=== PATIENT | female | born 1990 | race Caucasian/White ===

== ENCOUNTER 2020-12-08 06:43 | Day surgery (SDC) | payer BC ==
[~2020-12-08 06:43] MED LIST: Lactated Ringers 1,000 ML IV SCH
[2020-12-08] MEDS ORDERED: Midazolam 1 MG/ML 2 ML SDV ONE (06:58)
[2020-12-08] MEDS ORDERED: Propofol 200 MG/20 ML SDV ONE (06:58)
[2020-12-08] MEDS ORDERED: fentaNYL 100 MCG/2 ML SDV ONE ×2 (06:58→08:24)
[2020-12-08] MEDS ORDERED: Ondansetron 4 MG/2 ML SDV ONE (07:00)
[2020-12-08] MEDS ORDERED: Lidocaine 2% 5 ML SDV ONE (07:00)
[2020-12-08] MEDS ORDERED: Sugammadex Sodium 200 MG/2 ML VIAL ONE (07:00)
[2020-12-08] MEDS ORDERED: Rocuronium Bromide 50 MG/5 ML Syringe ONE (07:00)
[2020-12-08] MEDS ORDERED: Glycopyrrolate 0.2 MG/ML SDV ONE (07:00)
[2020-12-08] MEDS ORDERED: Ketorolac 30 MG/ML SDV ONE (07:00)
[2020-12-08] MEDS ORDERED: Bupivacaine 0.5% 30 ML SDV ONE (07:23)
[2020-12-08] MEDS ORDERED: Scopolamine 1.5 MG Transdermal Patch TRDERM ONE (07:23)
[2020-12-08] MEDS ORDERED: Morphine 2 MG/ML SYRINGE IVPUSH PRN (07:24)
[2020-12-08] MEDS ORDERED: Naloxone 0.4 MG/ML Syringe IVPUSH PRN (07:24)
[2020-12-08] MEDS ORDERED: Ondansetron 4 MG/2 ML SDV IVPUSH PRN (07:24)
[2020-12-08] MEDS ORDERED: Albuterol 0.083% 2.5 MG/3 ML Neb Soln NEB PRN (07:24)
[2020-12-08] MEDS ORDERED: Metoclopramide 10 MG/2 ML SDV IVPUSH PRN (07:24)
[2020-12-08] MEDS ORDERED: HYDROmorphone 1 MG/ML Syringe IVPUSH PRN (07:24)
[2020-12-08] MEDS ORDERED: fentaNYL 100 MCG/2 ML SDV IVPUSH PRN (07:24)
--- NOTE | 2020-12-08 07:28 | PCM.PREANE ---
Preanesthetic Assessment - Procedure Proposed Procedure: Operative Laparoscopy, ovarian cyst excision poss oopherectomy - Anesthesia/Transfusion/Family Hx Anesthesia History: Prior Anesthesia Reaction Type of Anesthesia Reaction: Excessive Nausea/Vomiting Transfusion History: No Prior Transfusion(s) - Review of Systems General: No Symptoms Pulmonary: No Symptoms Cardiovascular: No Symptoms Gastrointestinal: No Symptoms Neurological: No Symptoms Other: Reports: None - Physical Assessment NPO Status Date: 12/07/20 NPO Status Time: 20:30 Vital Signs: Last Vital Signs Temp 97.7 F 12/08/20 06:47 Pulse 72 12/08/20 06:47 Resp 15 12/08/20 06:47 BP 125/80 12/08/20 06:47 Pulse Ox 98 12/08/20 06:47 Height: 5 ft 3 in Weight: 53.524 kg ASA Class: 1 Mental Status: Alert & Oriented x3 Airway Class: Mallampati = 1 Dentition: Reports: Normal Dentition Thyro-Mental Finger Breadths: 3 Mouth Opening Finger Breadths: 3 ROM/Head Extension: Full Lungs: Clear to Auscultation, Normal Respiratory Effort Cardiovascular: Regular Rate, Regular Rhythm - Allergies Allergies/Adverse Reactions: Allergies Allergy/AdvReac Type Severity Reaction Status Date / Time No Known Allergies Allergy Verified 12/07/20 10:00 - Acknowledgements Anesthesia Type Planned: General Anesthesia Pt an Appropriate Candidate for the Planned Anesthesia: Yes Alternatives and Risks of Anesthesia Discussed w Pt/Guardian: Yes Pt/Guardian Understands and Agrees with Anesthesia Plan: Yes PreAnesthesia Questionnaire HEENT History: Reports: None Cardiovascular History: Reports: None Respiratory History: Reports: None Gastrointestinal History: Reports: None Genitourinary History: Reports: None SCIENCE MANAGER History: Reports: None Musculoskeletal History: Reports: None Neurological History: Reports: Concussion Psychiatric History: Reports: None Endocrine/Metabolic History: Reports: None Hematologic History: Reports: None Immunologic History: Reports: None Oncologic (Cancer) History: Reports: None Dermatologic History: Reports: None - Past Surgical History Head Surgeries/Procedures: Reports: None HEENT Surgical History: Reports: Oral Surgery Other HEENT Surgeries/Procedures: wisdom teeth removed Cardiovascular Surgical History: Reports: None Respiratory Surgical History: Reports: None GI Surgical History: Reports: None Female Surgical History: Reports: None Endocrine Surgical History: Reports: None Neurological Surgical History: Reports: None Musculoskeletal Surgical History: Reports: Arthroscopic Knee Other Musculoskeletal Surgeries/Procedures:: hc of right ACL repair Oncologic Surgical History: Reports: None Dermatological Surgical History: Reports: None - SUBSTANCE USE Tobacco Use Status *Q: Never Tobacco User Recreational Drug Use History: No - HOME MEDS Home Medications: Home Meds Multivitamin 1 tab PO DAILY 12/07/20 [History] Pnv No.95/Ferrous Fum/Folic AC [ Caplet] 1 tab PO DAILY 12/07/20 [History] - CURRENT (IN HOUSE) MEDS Current Meds: Current Medications Lactated Ringer's (Ringers, Lactated) 1,000 mls @ 100 mls/hr IV ASDIRECTED SANDI Last Admin: 12/08/20 07:10 Dose: 100 mls/hr Documented by: Scopolamine (Scopolamine 1.5 Mg Transdermal Patch) 0 mg TRDERM ONETIME ONE Stop: 12/08/20 07:24 Discontinued Medications Fentanyl (Fentanyl 100 Mcg/2 Ml Sdv) Confirm Administered Dose 100 mcg .ROUTE .STK-MED ONE Stop: 12/08/20 06:59 Glycopyrrolate (Glycopyrrolate 0.2 Mg/Ml Sdv) Confirm Administered Dose 0.2 mg .ROUTE .STK-MED ONE Stop: 12/08/20 07:01 Ketorolac Tromethamine (Ketorolac 30 Mg/Ml Sdv) Confirm Administered Dose 30 mg .ROUTE .STK-MED ONE Stop: 12/08/20 07:01 Lidocaine (Lidocaine 2% 5 Ml Sdv) Confirm Administered Dose 5 ml .ROUTE .STK-MED ONE Stop: 12/08/20 07:01 Midazolam HCl (Midazolam 1 Mg/Ml 2 Ml Sdv) Confirm Administered Dose 2 mg .ROUTE .STK-MED ONE Stop: 12/08/20 06:59 Ondansetron HCl (Ondansetron 4 Mg/2 Ml Sdv) Confirm Administered Dose 4 mg .ROUTE .STK-MED ONE Stop: 12/08/20 07:01 Propofol (Propofol 200 Mg/20 Ml Sdv) Confirm Administered Dose 200 mg .ROUTE .STK-MED ONE Stop: 12/08/20 06:59 Rocuronium Ione (Rocuronium Ione 50 Mg/5 Ml Syringe) Confirm Administered Dose 50 mg .ROUTE .STK-MED ONE Stop: 12/08/20 07:01 Sugammadex Sodium (Sugammadex Sodium 200 Mg/2 Ml Vial) Confirm Administered Dose 200 mg .ROUTE .[facility] ONE Stop: 12/08/20 07:01
[2020-12-08] MEDS ORDERED: Bupivacaine 0.25% 10 ML SDV ONE (07:50)
[2020-12-08] MEDS ORDERED: Methylene Blue 50 MG/10 ML Ampule ONE (09:09)
--- NOTE | 2020-12-08 09:53 | PCM.OPNOTE ---
- General Post-Op/Procedure Note Date of Surgery/Procedure: 12/08/20 Operative Procedure(s): Operative laparoscopy with right ovarian cystectomy, pelvic washings, ablation of endometriosis implants and chromotubation Findings: Right 7 cm endometrioma, endometriosis implants along anterior cul de sac, posterior cul de sac, broad ligaments. Posterior cul de sac is not ablated. Bilateral patent tubes. Pre Op Diagnosis: Right ovarian cyst Post-Op Diagnosis: Stage 2 endometriosis Anesthesia Technique: General ET Tube Primary Surgeon: Stella Munoz Atmospheric Chemist: Zheng Glass Atmospheric Chemist: Marianne Clarke Pathology: * Pelvic washings for cytology * Right ovarian cyst Fluid Replacement, Intraop: 1,100 EBL in mLs: 10 Complications: None known Condition: Stable
--- NOTE | 2020-12-08 10:04 | PCM.POSTAN ---
POST ANESTHESIA ASSESSMENT - MENTAL STATUS Mental Status: Alert, Oriented - VITAL SIGNS Vital Signs: Last Vital Signs Temp 97.0 F 12/08/20 09:45 Pulse 55 L 12/08/20 09:55 Resp 8 L 12/08/20 09:55 BP 99/55 L 12/08/20 09:55 Pulse Ox 100 12/08/20 09:55 - RESPIRATORY Respiratory Status: Respiratory Rate WNL, Airway Patent, O2 Saturation Stable - CARDIOVASCULAR CV Status: Pulse Rate WNL, Blood Pressure Stable - GASTROINTESTINAL GI Status: No Symptoms - PAIN Pain Score: 4 - POST OP HYDRATION Hydration Status: Adequate & Stable
[2020-12-08] MEDS ORDERED: Acetaminophen 1,000 MG in Premix Bag 1 BAG IV PRN (10:06)
--- NOTE | 2020-12-08 10:10 | PCM48HPAN ---
Post Anesthesia Note - EVALUATION WITHIN 48HRS OF ANESTHETIC Vital Signs in Normal Range: Yes Patient Participated in Evaluation: Yes Respiratory Function Stable: Yes Airway Patent: Yes Cardiovascular Function Stable: Yes Hydration Status Stable: Yes Pain Control Satisfactory: Yes Nausea and Vomiting Control Satisfactory: Yes Mental Status Recovered: Yes Vital Signs: Last Vital Signs Temp 97.0 F 12/08/20 09:45 Pulse 55 L 12/08/20 09:55 Resp 8 L 12/08/20 09:55 BP 99/55 L 12/08/20 09:55 Pulse Ox 100 12/08/20 09:55 - COMMENTS/OBSERVATIONS Free Text/Narrative:: Pt doing well post-op. VSS. No apparent anesthetic complications. Dr. Mak Montague
--- NOTE | 2020-12-08 17:58 | OR ---
SURGEON: Stella Munoz M.D. DATE OF PROCEDURE: 12/08/2020 PREOPERATIVE DIAGNOSIS: Right ovarian cyst. POSTOPERATIVE DIAGNOSIS: Stage II endometriosis with endometrioma. PROCEDURES: Operative laparoscopy with right ovarian cystectomy, pelvic washings, ablation of endometriosis implants and chromotubation. PRIMARY SURGEON: Stella Munoz M.D. INFORMATION TECHNOLOGY INSTRUCTOR: MD Quan ANESTHESIA: General endotracheal anesthesia. FLUIDS: 100 mL of crystalloid. COMPLICATIONS: None known. FINDINGS: Right ovarian endometrioma is suspected. Endometrial implants across the anterior cul-de-sac, broad ligaments bilaterally. Posterior cul-de-sac does not appear obliterated. The patient has bilateral patent tubes. DISPOSITION: The patient to PACU, stable. PROCEDURE DETAILS: Denise is a 30-year-old G0 who presents today with right ovarian cyst. It is relatively asymptomatic. The patient is going to be attempting with donor semen and [facility] has requested a baseline imaging study. This study revealed she had a 4 cm to 5 cm ovarian cyst and therefore we follow conservatively and with followup, it had grown to actually over 7 cm. Therefore, at this time, I opted to proceed with surgical evaluation. Risks of procedure were discussed. Proper consent was obtained. Uyen was taken to the operating room where she underwent general endotracheal anesthesia, was placed in the dorsal supine position with modified dorsal lithotomy repositioning. She was prepped and draped in usual sterile fashion. Bladder was drained. SCDs to the lower extremities. A time-out was performed. Speculum was introduced in the vagina. Anterior lip of cervix was grasped with an Allis clamp. A [employer] uterine manipulator was gently placed. Gloves changed. Attention turned abdominally. Infraumbilically, 0.25% Marcaine was introduced. Please see nurse's notes for total amount of local to be used during the procedure. A 5 mm infraumbilical sagittal midline skin incision was created. Anterior abdominal wall tented upward. Veress needle was introduced. Saline hanging drop test was performed. Pneumoperitoneum was achieved. The Veress needle was removed and a 5 mm trocar was introduced with laparoscope. Peritoneal contents were identified. Left lower quadrant and right lower quadrant trocar now introduced after prepping these regions with 0.25% Marcaine and creating a 5 mm skin incision. The uterus overall was mobile. There were apparent endometriosis implants noted along the anterior cul-de-sac to the right side, both broad ligaments, the right posterior cul-de-sac near the uterosacral ligament. The posterior cul-de-sac is not ablated. The cyst lifted easily out of the pelvis. There appears to be a right ovarian cyst as expected. The left ovary appears normal. The pelvis was copiously irrigated, suction dried with pelvic washings being sent to pathology for further analysis. At this point, I was able to secure the right ovary and create an incision along the ovary using Harmonic hook. The edge of the ovary was now grasped and the underlying cyst was peeled away from the overlying ovarian wall. After dissecting this region, and isolating the cyst away from the ovary, was able to lyse the base of the cyst using the Harmonic Scalpel. In order to remove the cyst, I needed to create a wider passage. Therefore, the left lower quadrant 5 mm trocar was removed and the incision was then extended to 10 mm. A 10 mm trocar was introduced. The cyst was grasped and able to be removed through this port. It will be sent to pathology for further analysis. The remaining ovary is now copiously irrigated, suction dried. Overall appeared hemostatic. Attention was now turned to ablating the endometriosis implants, which was performed with the Harmonic ball, was performed along the anterior cul- de-sac, posterior cul-de-sac, broad ligaments. The appendix was visualized. No endometrial implants were noted along this region. Again, the uterus appears mobile overall. Even though the patient has had an HSG, given that there is endometriosis present, opted to proceed with chromotubation. Therefore, attention was returned to the vagina. The uterine Hulka manipulator was gently removed. The cervix was grasped with an anterior lip of the Allis after introducing a speculum. HUMI uterine manipulator was gently introduced and using methylene blue, was able to instill the dye. Methylene blue was seen spilling from the right fimbria followed by the left fimbria, helping to ensure fallopian tube patency. Gloves changed. At this juncture, attention was turned abdominally. The pelvis was once again copiously irrigated, suction dried. The edges of the ovarian wall that were incised were now cauterized with Harmonic ball. Hemostasis was evident overall. Chad was introduced into the bed of the ovary along the right side. Pneumoperitoneum was reduced, once again inspected the region. Hemostasis once again appears evident. Therefore, the laparoscopic instruments were removed. The right and left lower quadrant trocar were removed under direct visualization followed by removal of laparoscopic infraumbilical trocar after releasing as much pneumoperitoneum as possible. The left lower quadrant fascia was reapproximated with an 0 Vicryl figure-of- eight suture. The skin edges were reapproximated using 4-0 Monocryl in subcuticular fashion. All instruments removed from vagina. Cervix inspected, found to be hemostatic. Sponge, instrument, and needle counts were correct x2. The patient tolerated the procedure well overall. She will go to PACU in stable condition. Specimens to pathology. JOHN / MARIANA /[id number] MTDD
== END 2020-12-08 11:38 | disposition home or self-care (01) ==
LOC: MW.SDS 06:43
PROVIDERS: ATTEND Obstetrics & Gynecology
DX: D27.0 Benign neoplasm of right ovary (principal); N80.0 Endometriosis of uterus; N80.1 Endometriosis of ovary
CPT/HCPCS: 58350; 58563; 58662; 88305; A9270; J1885; J2250; J2704; J3010; J3490; J7120; 00840; J2405

== ENCOUNTER 2022-08-23 11:25 | Inpatient (IN) | payer BC ==
[2022-08-23] MEDS ORDERED: Terbutaline 1 MG/ML SDV SUBCUT PRN (11:28)
[2022-08-23] MEDS ORDERED: Misoprostol 200 MCG Tab PO PRN (11:28)
[2022-08-23] MEDS ORDERED: Sodium Chloride 0.9% 2.5 ML Syringe FLUSH PRN (11:28)
[2022-08-23] MEDS ORDERED: Sodium Chloride 0.9% 20 ML SDV IV PRN (11:28)
[2022-08-23] MEDS ORDERED: Lidocaine 1% 50 ML MDV INJECT PRN (11:28)
[2022-08-23] MEDS ORDERED: Tranexamic Acid 1,000 MG in Sodium Chloride 0.9% 100 ML IV PRN (11:28)
[2022-08-23] MEDS ORDERED: Methylergonovine 0.2 MG/1 ML Amp IM PRN (11:28)
[2022-08-23] MEDS ORDERED: Sodium Chloride 0.9% 10 ML Syringe FLUSH PRN (11:28)
[2022-08-23] MEDS ORDERED: Ondansetron 4 MG/2 ML SDV IVPUSH PRN (11:28)
[2022-08-23] MEDS ORDERED: Butorphanol 1 MG/ML SDV IVPUSH PRN (11:28)
[2022-08-23] MEDS ORDERED: Water For Irrigation,Sterile 1,000 ML Container IRR PRN (11:28)
[2022-08-23] MEDS ORDERED: Carboprost Tromethamine 250 MCG/1 mL Vial IM PRN (11:28)
[2022-08-23] MEDS ORDERED: Oxytocin/0.9 % Sodium Chloride 30 UNIT/500 ML BAG IV SCH ×2 (11:30)
[2022-08-23] MEDS ORDERED: Misoprostol 25 MCG (1/4 of 100 MCG) Tab VAG PRN (12:00)
[2022-08-23] MEDS: Lactated Ringers 1,000 ML IV SCH (12:26)
[2022-08-23 12:30] LABS: HEMATOCRIT 34.8 % (36.0-46.0); HEMOGLOBIN 12.2 g/dL (12.0-16.0); MEAN CORPUSCULAR HGB CONC 35.1 g/dL (31.0-37.0); MEAN CORPUSCULAR VOLUME 94.1 fL (80.0-98.0); MEAN PLATELET VOLUME 12.6 fL (7.40-12.00); RED BLOOD CELL COUNT 3.7 M/uL (4.30-5.90); WHITE BLOOD CELL COUNT,WBC 10.14 K/uL (4.0-11.0)
[2022-08-23] MEDS: Misoprostol 25 MCG (1/4 of 100 MCG) Tab VAG PRN ×2 (16:30→20:34)
[2022-08-24] MEDS: Lactated Ringers 1,000 ML IV SCH ×3 (06:41→14:44)
[2022-08-24] MEDS ORDERED: Dexmedetomidine 200 MCG/2 ML SDV ONE ×2 (07:56→18:49)
[2022-08-24] MEDS ORDERED: Ropivacaine/PF 400 MG/200 ML PCA ONE (07:56)
[2022-08-24] MEDS ORDERED: Phenylephrine HCl 0.5 MG/5 ML AMP IVPUSH PRN (08:12)
[2022-08-24] MEDS ORDERED: ePHEDrine 50 MG/ML SDV IVPUSH PRN ×3 (08:12→20:02)
[2022-08-24] MEDS ORDERED: Ropivacaine HCl/PF 400 MG in Premix Bag 1 BAG EPIDUR SCH (08:15)
[2022-08-24] MEDS ORDERED: ceFAZolin 1 GM in Sodium Chloride 0.9% 50 ML IV ONE (17:59)
[2022-08-24] MEDS ORDERED: Citric Acid/Sodium Citrate Solution 30 ML Cup PO ONE (17:59)
[2022-08-24] MEDS ORDERED: Ondansetron 4 MG/2 ML SDV ONE (18:18)
[2022-08-24] MEDS ORDERED: Oxytocin 10 Units/1 ML SDV ONE (18:44)
[2022-08-24] MEDS ORDERED: ceFAZolin 1 GM Vial ONE (18:45)
[2022-08-24] MEDS ORDERED: Water For Injection, Sterile 20 ML ONE (18:49)
[2022-08-24] MEDS ORDERED: Dexamethasone 4 MG/ML 5 ML MDV ONE (18:56)
[2022-08-24] MEDS ORDERED: Ropivacaine 0.5% 5 MG/ML 30 ML SDV ONE (19:11)
[2022-08-24] MEDS ORDERED: Morphine PF 10 MG/10 ML SDV ONE (19:14)
[2022-08-24] MEDS ORDERED: Lanolin 100% Cream 7 GM Tube TOP PRN (19:39)
[2022-08-24] MEDS ORDERED: Methylergonovine 0.2 MG/1 ML Amp IM PRN (19:39)
[2022-08-24] MEDS ORDERED: Bisacodyl 10 MG Supp RECTAL PRN (19:39)
[2022-08-24] MEDS ORDERED: Acetaminophen/oxyCODONE 325-5 MG Tab PO PRN ×2 (19:39→20:02)
[2022-08-24] MEDS ORDERED: Oxytocin 10 Units/1 ML SDV IM PRN (19:39)
[2022-08-24] MEDS ORDERED: Tranexamic Acid 1,000 MG in Sodium Chloride 0.9% 100 ML IV PRN (19:39)
[2022-08-24] MEDS ORDERED: Misoprostol 200 MCG Tab RECTAL PRN (19:39)
[2022-08-24] MEDS ORDERED: Aluminum Hydroxide/Magnesium Hydroxide/Simethicone XS Susp 30 ML Cup PO PRN (19:39)
[2022-08-24] MEDS ORDERED: Lactated Ringers 1,000 ML IV SCH (19:45)
[2022-08-24] MEDS ORDERED: Bupivacaine 0.25% 10 ML SDV ONE (19:50)
[2022-08-24] MEDS ORDERED: fentaNYL 100 MCG/2 ML SDV IVPUSH PRN (20:02)
[2022-08-24] MEDS ORDERED: diphenhydrAMINE 50 MG/ML SDV IVPUSH PRN (20:02)
[2022-08-24] MEDS ORDERED: Ondansetron 4 MG/2 ML SDV IVPUSH PRN (20:02)
[2022-08-24 20:18] LABS: PH,UMBILICAL ARTERIAL 7.245 (7.18-7.38); PH,UMBILICAL VENOUS 7.369 (7.25-7.45)
[2022-08-24] MEDS: Ketorolac 30 MG/ML SDV IVPUSH SCH (21:10)
[2022-08-24] MEDS: diphenhydrAMINE 50 MG/ML SDV IVPUSH PRN (21:13)
[2022-08-24] MEDS: Docusate Sodium 100 MG Cap PO SCH (21:14)
[2022-08-25] MEDS: Ketorolac 30 MG/ML SDV IVPUSH SCH ×3 (03:13→18:04)
[2022-08-25] MEDS: diphenhydrAMINE 50 MG/ML SDV IVPUSH PRN ×3 (03:13→18:45)
[2022-08-25] MEDS: Simethicone 80 MG Tab.Chew PO SCH ×5 (05:12→23:09)
[2022-08-25 05:29] LABS: HEMATOCRIT 32.4 % (36.0-46.0)
[2022-08-25] MEDS: Docusate Sodium 100 MG Cap PO SCH ×2 (09:10→23:07)
[2022-08-25] MEDS: Ibuprofen 800 MG Tab PO PRN ×2 (15:11→23:08)
[2022-08-25] MEDS: Ondansetron 4 MG/2 ML SDV IVPUSH PRN (18:46)
[2022-08-25] MEDS: Acetaminophen/oxyCODONE 325-5 MG Tab PO PRN (18:46)
[2022-08-26] MEDS: Simethicone 80 MG Tab.Chew PO SCH (06:34)
[2022-08-26] MEDS: Ibuprofen 800 MG Tab PO PRN (06:34)
[2022-08-26] MEDS: Acetaminophen/oxyCODONE 325-5 MG Tab PO PRN (08:10)
[2022-08-26] MEDS: Ondansetron 4 MG/2 ML SDV IVPUSH PRN (08:10)
[2022-08-26] MEDS: Docusate Sodium 100 MG Cap PO SCH (09:27)
== END 2022-08-26 12:25 | disposition home or self-care (01) | DRG 540 ==
LOC: MW.OBCHECK 11:25 → MW.OB 11:31 → MW.OBCHECK 11:33 → MW.OB 11:34 → OBSVTOIN 08-24 18:53 → MW.OB 08-24 21:33
PROVIDERS: ADMIT Obstetrics & Gynecology; ATTEND Obstetrics & Gynecology
PROC: 10D00Z1 Extraction of Products of Conception, Low, Open Approach (ICD-10-PCS; principal; 2022-08-24)
PROC: 3E0P7VZ Introduction of Hormone into Female Reproductive, Via Natural or Artificial Opening (ICD-10-PCS; 2022-08-24)
PROC: 3E033VJ Introduction of Other Hormone into Peripheral Vein, Percutaneous Approach (ICD-10-PCS; 2022-08-24)
PROC: 3E0R3BZ Introduction of Anesthetic Agent into Spinal Canal, Percutaneous Approach (ICD-10-PCS; 2022-08-24)
PROC: 00HU33Z Insertion of Infusion Device into Spinal Canal, Percutaneous Approach (ICD-10-PCS; 2022-08-24)
DX: O48.0 Post-term pregnancy (principal); Z37.0 Single live birth; Z3A.40 40 weeks gestation of pregnancy; O76 Abnormality in fetal heart rate and rhythm complicating labor and delivery
CPT/HCPCS: 36415; 51702; 82803; 85014; 85018; 85027; 86592; 86850; 86900; 86901; A9270-GY; J0131; J0690; J1100; J1200; J1885; J2274; J2405; J2590; J2795; J3490; J7120

== ENCOUNTER 2022-09-06 21:50 | Emergency (ER) | payer BC ==
[2022-09-06] MEDS ORDERED: Ketorolac 30 MG/ML SDV IVPUSH ONE (22:55)
[2022-09-06] MEDS ORDERED: Sodium Chloride 0.9% 1,000 ML IV ONE (22:55)
[2022-09-06] MEDS ORDERED: Ondansetron 4 MG/2 ML SDV IVPUSH ONE (22:55)
[2022-09-06 23:18] LABS: BASOPHILS PERCENT AUTO 0.2 % (0.0-1.5); EOSINOPHILS PERCENT AUTO 0.2 % (0.0-7.0); HEMATOCRIT 35.7 % (36.0-46.0); HEMOGLOBIN 12.1 g/dL (12.0-16.0); LYMPHOCYTES PERCENT AUTO 8.8 % (16.0-40.0); MEAN CORPUSCULAR HEMOGLOBIN 32.7 pg (27.0-32.0); MEAN CORPUSCULAR HGB CONC 33.9 g/dL (31.0-37.0); MEAN CORPUSCULAR VOLUME 96.5 fL (80.0-98.0); MONOCYTES ABSOLUTE AUTO 0.6 K/uL (0.0-0.8); NEUTROPHILS ABSOLUTE AUTO 9.6 K/uL (1.4-5.7); NEUTROPHILS PERCENT AUTO 85.8 % (48.0-80.0); PLATELET COUNT,PLT 311 K/uL (150-400); WHITE BLOOD CELL COUNT,WBC 11.22 K/uL (4.0-11.0)
[2022-09-06 23:22] LABS: CORONAVIRUS COVID-19 NAA NEGATIVE (NEGATIVE); INFLUENZA A NAA NEGATIVE (NEGATIVE); INFLUENZA B NAA NEGATIVE (NEGATIVE)
[2022-09-06] MEDS ORDERED: Acetaminophen 500 MG Tab PO ONE (23:31)
[2022-09-06 23:39] LABS: A/G RATIO 0.8 (0.9-1.6); ALANINE AMINOTRANSFERASE,ALT 36 IU/L (14-63); ALBUMIN 2.8 g/dL (3.4-5.0); ALKALINE PHOSPHATASE 68 U/L (46-116); ASPARTATE AMNIOTRANSFERASE,AST 32 IU/L (15-37); BILIRUBIN TOTAL 0.3 mg/dL (0.2-1.0); BLOOD UREA NITROGEN,BUN 17 mg/dL (7.0-18.0); CALCIUM 8.1 mg/dL (8.5-10.1); CARBON DIOXIDE,CO2 17.8 mmol/L (21.0-32.0); CHLORIDE,CL 106 mmol/L (98-107); CREATININE 0.8 mg/dL (0.6-1.0); GLUCOSE RANDOM 87 mg/dL (74-106); MAGNESIUM 1.7 mg/dL (1.8-2.4); POTASSIUM,K 3.3 mmol/L (3.5-5.1); PROTEIN TOTAL,TP 6.5 g/dL (6.4-8.2); SODIUM,NA 141 mmol/L (136-145)
[2022-09-06 23:41] LABS: ESTIMATED GFR 100 mL/min (>60)
[2022-09-07 00:01] LABS: APPEARANCE,URINE SLT CLOUDY; COLOR,URINE YELLOW; GLUCOSE,URINE NEGATIVE (NEGATIVE); KETONES,URINE 40 mg/dL (NEGATIVE); LEUKOCYTE ESTERASE,URINE NEGATIVE (NEGATIVE); NITRITE,URINE NEGATIVE (NEGATIVE); OCCULT BLOOD,URINE LARGE (NEGATIVE); PH,URINE 5.5 (5.0-8.0); PROTEIN,URINE 30 mg/dL (NEGATIVE)
[2022-09-07] MEDS ORDERED: Iopamidol 755 MG/ML 500 ML Multipack Bottle IVPUSH STA (00:14)
[2022-09-07 00:15] LABS: BILIRUBIN,URINE SMALL (NEGATIVE)
[2022-09-07 00:16] LABS: RBC,URINE 30-40 (0-2/HPF)
[2022-09-07 00:17] LABS: BACTERIA,URINE FEW (NEGATIVE); EPITHELIAL CELLS,URINE FEW (NONE-FEW); MUCUS,URINE MODERATE (NONE-MOD)
== END 2022-09-07 01:28 | disposition home or self-care (01) ==
LOC: MW.ED 21:50
DX: K52.9 Noninfective gastroenteritis and colitis, unspecified (principal); Z98.890 Other specified postprocedural states; Z20.822 Contact with and (suspected) exposure to COVID-19
CPT/HCPCS: 0240U; 36415; 74177; 80053; 81001; 83735; 85025; 86140; 87045; 87046; 87324; 87328; 87329; 87449; 87899; 96361; 96374; 99284; A9270; J2405; J7030; Q9967

== ENCOUNTER 2023-10-24 11:08 | Day surgery (SDC) | payer BC ==
[~2023-10-24 11:08] MED LIST changes: +Albuterol 0.083% 2.5 MG/3 ML Neb Soln NEB PRN; +Dexamethasone 4 MG/ML 5 ML MDV ONE; +HYDROmorphone 1 MG/ML Syringe IVPUSH PRN; +Ketorolac 30 MG/ML SDV ONE; -Lactated Ringers 1,000 ML IV SCH; +Lidocaine 1% 5 ML VIAL ONE; +Metoclopramide 10 MG/2 ML SDV IVPUSH PRN; +Morphine 2 MG/ML SYRINGE IVPUSH PRN; +Naloxone 0.4 MG/ML SDV IVPUSH PRN; +Ondansetron 4 MG/2 ML SDV IVPUSH PRN; +Ondansetron 4 MG/2 ML SDV ONE; +Sodium Chloride 0.9% 10 ML Syringe FLUSH PRN; +Sodium Chloride 0.9% 2.5 ML Syringe FLUSH PRN; +Sodium Chloride 0.9% 20 ML SDV IV PRN; +droPERidol 5 MG/2 ML SDV IVPUSH PRN; +fentaNYL 100 MCG/2 ML SDV ONE; +fentaNYL 50 MCG/ML SDV IVPUSH PRN; +propofoL 100 ML ONE
[2023-10-24] MEDS: Lactated Ringers 1,000 ML IV SCH (11:26)
[2023-10-24] MEDS: Scopalamine 1mg/3day Transdermal Patch TOP ONE (11:26)
== END 2023-10-24 12:30 | disposition home or self-care (01) ==
LOC: MW.SDS 11:08
PROVIDERS: ATTEND Obstetrics & Gynecology
DX: N84.0 Polyp of corpus uteri (principal)
CPT/HCPCS: 58558; 81025; A9270; J0131; J1100; J1885; J2405; J2704; J3010; J7120; 00952; J3490

== ENCOUNTER 2024-09-10 05:07 | Inpatient (IN) | payer BC ==
[2024-09-10] MEDS ORDERED: Misoprostol 200 MCG Tab RECTAL PRN ×2 (05:09→09:12)
[2024-09-10] MEDS ORDERED: Sodium Chloride 0.9% 2.5 ML Syringe FLUSH PRN (05:09)
[2024-09-10] MEDS ORDERED: Sodium Chloride 0.9% 10 ML Syringe FLUSH PRN (05:09)
[2024-09-10] MEDS ORDERED: Sodium Chloride 0.9% 20 ML SDV IV PRN (05:09)
[2024-09-10] MEDS ORDERED: Oxytocin/0.9 % Sodium Chloride 30 UNIT/500 ML BAG IV SCH (05:15)
[2024-09-10] MEDS: Lactated Ringers 1,000 ML IV SCH (05:35)
[2024-09-10 05:52] LABS: HEMATOCRIT 32.4 % (37.0-47.0); HEMOGLOBIN 11.1 g/dL (12.0-16.0); MEAN CORPUSCULAR HEMOGLOBIN 31.3 pg (28.0-32.0); MEAN CORPUSCULAR HGB CONC 34.3 g/dL (32.0-36.0); MEAN CORPUSCULAR VOLUME 91.3 fL (83.0-99.0); MEAN PLATELET VOLUME 11.3 fL (9.4-12.3); PLATELET COUNT,PLT 197 K/uL (150-400); RED BLOOD CELL COUNT 3.55 M/uL (4.10-5.30)
[2024-09-10] MEDS ORDERED: ceFAZolin 2 GM Vial ONE (07:01)
[2024-09-10] MEDS ORDERED: Ondansetron 4 MG/2 ML SDV ONE (07:01)
[2024-09-10] MEDS ORDERED: Phenylephrine 1% 10 MG/ML SDV ONE (07:01)
[2024-09-10] MEDS ORDERED: ePHEDrine 50 MG/ML SDV ONE (07:01)
[2024-09-10] MEDS ORDERED: Dexamethasone 4 MG/ML 5 ML MDV ONE (07:01)
[2024-09-10] MEDS ORDERED: Oxytocin 10 Units/1 ML SDV ONE (07:01)
[2024-09-10] MEDS ORDERED: Ropivacaine 0.5% 5 MG/ML 30 ML SDV ONE (07:01)
[2024-09-10] MEDS ORDERED: dexmedeTOMIDine HCl 200 MCG/2 ML SDV ONE (07:01)
[2024-09-10] MEDS ORDERED: Morphine PF 10 MG/10 ML SDV ONE (07:03)
[2024-09-10] MEDS ORDERED: fentaNYL 100 MCG/2 ML SDV ONE (07:03)
[2024-09-10] MEDS ORDERED: ePHEDrine 50 MG/ML SDV IVPUSH PRN (07:20)
[2024-09-10] MEDS ORDERED: Phenylephrine HCl In 0.9% NaCl 1 MG/10 ML Syringe IVPUSH PRN (07:20)
[2024-09-10] MEDS ORDERED: dexmedeTOMIDine HCl 200 MCG/2 ML SDV EPIDUR SCH (07:30)
[2024-09-10] MEDS ORDERED: Ropivacaine HCl/PF 400 MG in Premix Bag 1 BAG EPIDUR SCH (07:30)
[2024-09-10] MEDS ORDERED: Lanolin 100% Cream 7 GM Tube TOP PRN (09:12)
[2024-09-10] MEDS ORDERED: Oxytocin 10 Units/1 ML SDV IM PRN (09:12)
[2024-09-10] MEDS ORDERED: Aluminum Hydroxide/Magnesium Hydroxide/Simethicone Susp 30 ML Cup PO PRN (09:12)
[2024-09-10] MEDS ORDERED: Naloxone 0.4 MG/ML SDV IVPUSH PRN (09:12)
[2024-09-10] MEDS ORDERED: diphenhydrAMINE 50 MG/ML SDV IVPUSH PRN (09:12)
[2024-09-10] MEDS ORDERED: Methylergonovine 0.2 MG/1 ML Amp IM PRN (09:12)
[2024-09-10] MEDS ORDERED: Bisacodyl 10 MG Supp RECTAL PRN (09:12)
[2024-09-10] MEDS ORDERED: Acetaminophen/oxyCODONE 325-5 MG Tab PO PRN ×2 (09:12)
[2024-09-10] MEDS ORDERED: Lactated Ringers 1,000 ML IV SCH (09:15)
[2024-09-10] MEDS: Ondansetron 4 MG/2 ML SDV IVPUSH PRN (09:35)
[2024-09-10] MEDS: Ketorolac 30 MG/ML SDV IVPUSH SCH (09:48)
[2024-09-10] MEDS: ceFAZolin 1 GM in Water For Injection, Sterile 10 ML IVPUSH ONE (09:52)
[2024-09-10] MEDS: Citric Acid/Sodium Citrate Solution 30 ML Cup PO ONE (09:52)
[2024-09-10 09:55] LABS: PH,UMBILICAL ARTERIAL 7.13 (7.18-7.38); PH,UMBILICAL VENOUS 7.33 (7.25-7.45)
[2024-09-10] MEDS: Metoclopramide 10 MG/2 ML SDV IVPUSH ONE (10:59)
[2024-09-10] MEDS: Simethicone 80 MG Tab.Chew PO SCH (11:59)
[2024-09-10] MEDS: Docusate Sodium 100 MG Cap PO SCH (21:25)
[2024-09-11 06:25] LABS: HEMATOCRIT 23.1 % (37.0-47.0); HEMOGLOBIN 7.6 g/dL (12.0-16.0)
[2024-09-11] MEDS: Sodium Ferric Gluconate Cmplex 125 MG in Sodium Chloride 0.9% 100 ML IV SCH (11:15)
[2024-09-11] MEDS: Acetaminophen 500 MG Tab PO PRN (14:20)
[2024-09-11] MEDS: Ibuprofen 800 MG Tab PO PRN (16:56)
[2024-09-12] MEDS: Measles, Mumps & Rubella Vaccine 0.5 ML SDV SUBCUT ONE (11:31)
== END 2024-09-12 11:55 | disposition home or self-care (01) | DRG 540 ==
LOC: MW.OB 05:07
PROVIDERS: ADMIT Obstetrics & Gynecology; ATTEND Obstetrics & Gynecology
PROC: 10D00Z1 Extraction of Products of Conception, Low, Open Approach (ICD-10-PCS; principal; 2024-09-10 08:00)
DX: O34.211 Maternal care for low transverse scar from previous cesarean delivery (principal); D62 Acute posthemorrhagic anemia; Z3A.39 39 weeks gestation of pregnancy; Z37.0 Single live birth; Z98.890 Other specified postprocedural states; Z79.899 Other long term (current) drug therapy; O90.81 Anemia of the puerperium
CPT/HCPCS: 01961; 36415; 59025; 64488; 82803; 85014; 85018; 85027; 86592; 86850; 86900; 86901; 90471; 90707; A9270-GY; J0690; J1100; J1885; J2274; J2371; J2405; J2590; J2765; J2795; J2916; J3010; J3490; J7120